=== PATIENT | male | born 1960 | race Caucasian/White ===

== ENCOUNTER 2017-06-06 14:52 | Emergency (ER) | payer OTHER ==
[2017-06-06] MEDS ORDERED: HYDROMORPHONE HCL 2 MG/ML SOL IV ONE ×2 (14:53→15:04)
[2017-06-06] MEDS ORDERED: SODIUM CHLORIDE 0.9% 1000ML 1,000 ML IV ONE (14:55)
[2017-06-06] MEDS ORDERED: HYDROMORPHONE HCL 2 MG/ML SOL ONE (15:02)
[2017-06-06] MEDS ORDERED: LORAZEPAM 2 MG/ML SOL ONE (15:07)
[2017-06-06] MEDS ORDERED: LORAZEPAM 2 MG/ML SOL IV ONE (15:09)
[2017-06-06 15:20] LABS: BASOPHILS % (AUTO) 2 % (0-3); EOSINOPHILS % (AUTO) 4 % (0-9); HEMATOCRIT 46 % (39-53); MEAN CORPUSCULAR VOLUME 92 fL (80-100); MONOCYTES % (AUTO) 7.9 % (0-12); NEUTROPHILS % (AUTO) 55.3 % (37-80)
[2017-06-06 15:24] LABS: ALBUMIN 4.2 gm/dl (3.4-5.0); CALCIUM 9.7 mg/dl (8.5-10.1)
[2017-06-06] MEDS ORDERED: KETOROLAC TROMETHAMINE 30 MG/ML SOL ONE (15:32)
[2017-06-06] MEDS ORDERED: KETOROLAC TROMETHAMINE 30 MG/ML SOL IV ONE (15:41)
[2017-06-06 15:56] VITALS: TEMP 99.4
[2017-06-06] MEDS ORDERED: SILVER SULFADIAZINE CREAM 1 APPL CRE TOP ONE ×3 (15:59→16:28)
[2017-06-06 16:15] LABS: AMPHETAMINES NEGATIVE (NEGATIVE); METHADONE NEGATIVE (NEGATIVE); OPIATES(OP13) NEGATIVE (NEGATIVE); OXYCODONE(OXY) NEGATIVE (NEGATIVE); PROPOXYPHENE(PPX) NEGATIVE (NEGATIVE); TRICYCLIC ANTIDEPRESSANTS NEGATIVE (NEGATIVE)
[2017-06-06 16:33] VITALS: RESP 12
[2017-06-06 19:13] VITALS: BP 105/64; PULSE 60; O2SAT 96
== END 2017-06-06 18:10 | disposition home or self-care (01) | DRG 935 ==
LOC: ED 14:52
DX: T23.071A Burn of unspecified degree of right wrist, initial encounter (principal); T23.001A Burn of unspecified degree of right hand, unspecified site, initial encounter; X08.8XXA Exposure to other specified smoke, fire and flames, initial encounter
CPT/HCPCS: 71045; 80053; 80305; 80307; 85025; 99285; J1170; J1885; J2060; A9270-GY